=== PATIENT | female | born 1990 | race Caucasian/White ===

== ENCOUNTER 2018-06-12 02:32 | Outpatient (CLI) | payer OTHER ==
[~2018-06-12] VITALS: Ht 160 cm; Wt 69.9 kg
[2018-06-12 02:36] VITALS: BP 109/68; PULSE 70; RESP 16
[2018-06-12 02:38] VITALS: Ht 160 cm; Wt 69.9 kg
--- NOTE | 2018-06-12 05:39 | PN ---
Triage Information Date/Time 06/12/1804/01/533 Reason for visit: Uterine contractions Weeks of Gestation 34w1d /Para Diabetes: none Hypertention: none Objective Vital Signs Date Temp Pulse Resp B/P (MAP) Pulse Ox O2 O2 Flow FiO2 Time Delivery Rate 06/12/18 98.3 70 16 109/68 Room Air 02:36 (82) Heart Rate: 130's Heart Rate Comments CAT I tracing Contractions: >10 Minutes Apart Results/Medications Results 24 hrs Laboratory Tests Test 06/12/18 02:50 Urine Color STRAW Urine Clarity CLEAR Urine pH 6.0 Urine Specific [place] 1.010 Urine Ketones NEGATIVE Urine Nitrite NEGATIVE Urine Bilirubin NEGATIVE Urine Urobilinogen NEGATIVE Urine Leukocyte Esterase 1+ H Urine Microscopic RBC 0 Urine Microscopic WBC 0 Urine Bacteria FEW A Urine Hemoglobin NEGATIVE Urine Glucose NEGATIVE Urine Total Protein NEGATIVE Imaging Results BPP 8 GEORGE 10.42 CVL 5.5 Disposition: Discharge Assessment/Plan A IUP 34w1d NIL P discharge home with routine labor instructions CHELI CACERES MD Jun 12, 2018 05:39
--- NOTE | 2018-06-12 05:41 | TRIAGE ---
OB Triage Datetime Report Generated by CPN: 06/12/2018 05:40 Datetime: 06/12/2018 05:23 Labor Evaluation Frequency: none Monitor Mode: External Quality: Mild Pattern: Normal: <= 5 Contractions in 10 Minutes Resting Tone [place]: Relaxed Heart Rate FHR Baseline Rate: 125 Monitor Mode: External US FHR Baseline Changes: No Baseline Change Variability: Moderate 6-25 bpm Accelerations: 15X15 Decelerations: None Category: Category I Datetime: 06/12/2018 04:30 Labor Evaluation Frequency: x2 Monitor Mode: External Duration (sec)2399: 50 Quality: Mild Pattern: Normal: <= 5 Contractions in 10 Minutes Resting Tone [place]: Relaxed Heart Rate FHR Baseline Rate: 125 Monitor Mode: External US FHR Baseline Changes: No Baseline Change Variability: Moderate 6-25 bpm Accelerations: 15X15 Decelerations: None Category: Category I Datetime: 06/12/2018 03:31 Labor Evaluation Frequency: none Monitor Mode: External Pattern: Normal: <= 5 Contractions in 10 Minutes Resting Tone [place]: Relaxed Heart Rate FHR Baseline Rate: 125 Monitor Mode: External US FHR Baseline Changes: No Baseline Change Variability: Moderate 6-25 bpm Accelerations: 15X15 Decelerations: None Category: Category I Datetime: 06/12/2018 03:00 Assessment Type: Triage Maternal Assessment Level of Consciousness: Fully Conscious DTR's/Clonus: DTRs 2+; No Clonus Headache: Denies Blurred Vision: No Respiratory Effort: Unlabored; Regular Rhythm; Equal Expansion Breath Sounds, Left: Clear and Equal Breath Sounds, Right: Clear and Equal Nausea/Vomiting: Denies RUQ Epigastric Pain: Denies Facial Edema: None Fall Risk Assessment History of Falling: (0) No Secondary Diagnosis: (0) No Ambulatory Aid: (0) Bedrest/Nurse Assist IV Therapy: (0) No Gait: (0) Normal/Bedrest/Immobile Mental Status: (0) Oriented to Own Ability Fall Score: 0 Fall Risk Score Definition: No Risk: No action required Datetime: 06/12/2018 02:41 Time of Arrival: 06/12/2018 02:30 EGA: 34.1 Arrived By: Ambulatory Arrived From: Home Chief Complaint: C_O UC'S SINCE 0 Movement: Decreased Contractions: Irregular Time Contractions Began: 06/12/2018 00:30 Rupture of Membranes: Denies Vaginal Bleeding: None Vaginal Discharge: Denies Recent Sexual Intercouse: Denies Abdominal Trauma: Not Applicable Patient Complaints: Contractions Time Provider Notified: 06/12/2018 03:15 Provider Notified: Initial Plan: EFM, UA, URINE CULTURE, BPP,NST, CVL Datetime: 06/12/2018 02:40 Vaginal Exam Membrane Status: Intact Datetime: 06/12/2018 02:35 Labor Evaluation Frequency: NONE Monitor Mode: External Pattern: Normal: <= 5 Contractions in 10 Minutes Resting Tone [place]: Relaxed Heart Rate FHR Baseline Rate: 135 Monitor Mode: External US FHR Baseline Changes: No Baseline Change Variability: Moderate 6-25 bpm Accelerations: 15X15 Decelerations: None Category: Category I Vaginal Exam Membrane Status: Intact
== END 2018-06-12 05:38 | disposition home or self-care (01) ==
LOC: OBT 02:32 → L-D 02:34 → OBT 05:38
PROVIDERS: ATTEND Specialist
DX: O62.9 Abnormality of forces of labor, unspecified (principal); Z3A.34 34 weeks gestation of pregnancy
CPT/HCPCS: 76817; 76818; 81001; 87086; Z7500; G0463

== ENCOUNTER 2018-07-15 22:12 | Outpatient (CLI) | payer OTHER ==
[~2018-07-15] VITALS: Ht 160 cm; Wt 71.6 kg
[2018-07-15 22:14] VITALS: Ht 160 cm; Wt 71.6 kg
[2018-07-15] MEDS ORDERED: PREN-93 PO (22:15)
[2018-07-15] MEDS ORDERED: FER325 PO (22:15)
--- NOTE | 2018-07-16 03:16 | TRIAGE ---
OB Triage Datetime Report Generated by CPN: 07/16/2018 03:16 Datetime: 07/16/2018 02:42 Labor Evaluation Frequency: 1.5-4 Monitor Mode: External Duration (sec)2399: 60-150 Pattern: Normal: <= 5 Contractions in 10 Minutes Heart Rate FHR Baseline Rate: 130 Monitor Mode: External US Variability: Moderate 6-25 bpm Accelerations: 15X15 Decelerations: None Category: Category I Datetime: 07/16/2018 02:03 Vaginal Exam Dilatation (cms): 2.0 Effacement (%): 60 Station: -3 Vaginal Bleeding: None Cervix, Consistency: Moderate Cervix, Position: Posterior Presentation 'A': Cephalic Datetime: 07/16/2018 02:00 Monitor Mode: External US Comments: AUDIBLE FHT Datetime: 07/16/2018 00:09 Comments: pt off monitor to ambulate on unit Datetime: 07/16/2018 00:00 Labor Evaluation Frequency: 3-6 Monitor Mode: External Duration (sec)2399: 60-150 Pattern: Normal: <= 5 Contractions in 10 Minutes Heart Rate FHR Baseline Rate: 130 Monitor Mode: External US Variability: Moderate 6-25 bpm Accelerations: 15X15 Decelerations: None Category: Category I Datetime: 07/15/2018 23:44 Vaginal Exam Dilatation (cms): 1.0 Effacement (%): 40 Station: -3 Vaginal Bleeding: None Cervix, Consistency: Moderate Cervix, Position: Posterior Presentation 'A': Cephalic Datetime: 07/15/2018 23:00 Labor Evaluation Frequency: 4-8 Monitor Mode: External Duration (sec)2399: 60-240 Pattern: Normal: <= 5 Contractions in 10 Minutes Heart Rate FHR Baseline Rate: 135 Monitor Mode: External US Variability: Moderate 6-25 bpm Accelerations: 15X15 Decelerations: None Category: Category I Datetime: 07/15/2018 22:30 Vaginal Exam Dilatation (cms): 1.0 Effacement (%): 40 Station: -3 Vaginal Bleeding: None Cervix, Consistency: Moderate Cervix, Position: Posterior Presentation 'A': Unable to Assess Lie 'A': Longitudinal Datetime: 07/15/2018 22:22 Stage of : OB Triage Assessment Type: Triage Maternal Assessment Level of Consciousness: Fully Conscious DTR's/Clonus: DTRs 2+; No Clonus Headache: Denies Blurred Vision: No Respiratory Effort: Unlabored; Regular Rhythm; Equal Expansion Breath Sounds, Left: Clear and Equal Breath Sounds, Right: Clear and Equal Nausea/Vomiting: Denies RUQ Epigastric Pain: Denies Lower Extremities Edema: None Degree: None Upper Extremities Edema: None Degree: None Facial Edema: None Temperature Route: Oral Comments: monitors applied. audible FHT Pain Assessment Pain Scale: 8 Pain Presence: Intermittent Pain Type: Pressure Pain Location: Abdomen; Back Pain Goal: 2 Pain Relief Measures: Comfort Measures Datetime: 07/15/2018 22:16 Time of Arrival: 07/15/2018 22:09 EGA: 38.6 Arrived By: Wheelchair Arrived From: Home Chief Complaint: UC'S _ BLEEDING Movement: Present Contractions: Regular Time Contractions Began: 07/15/2018 21:00 Rupture of Membranes: Denies Vaginal Bleeding: Small Vaginal Discharge: Present Recent Sexual Intercouse: Denies Abdominal Trauma: Not Applicable Patient Complaints: Contractions; Other Time Provider Notified: 07/15/2018 22:48 Provider Notified: SUSAN Initial Plan: CEFM, SVE, BPP, PO HYDRATION, UA Datetime: 06/12/2018 03:00 Fall Risk Assessment Fall Score: 0 Fall Risk Score Definition: No Risk: No action required Datetime: 06/12/2018 02:41 EGA: 34.1
--- NOTE | 2018-07-16 06:37 | PN ---
Triage Information Date/Time July 15, 2018 Weeks of Gestation 39 weeks /Para 3 para 2 Diabetes: none Hypertention: none Additional information 27-year-old G3, P2 with IUP at 39 weeks presented with uterine contractions and passing mucus with scant amount of blood. She denies any decreased movement. Objective Vital signs stable Heart Rate: 130's Heart Rate Comments NST category 1 and reactive Exam General appearance: Alert and oriented x4 does not appear to be in any acute distress Abdomen soft, gravid, fundal height consistent with gestational age NST: Category 1 Cervical exam /-3 BPP:10/19 GEORGE: 815.9 Results/Medications Results 24 hrs Laboratory Tests Test 07/15/18 22:30 Urine Color YELLOW Urine Clarity SLIGHTLY CLOUDY A Urine pH 7.0 Urine Specific [place] 1.018 Urine Ketones NEGATIVE Urine Nitrite NEGATIVE Urine Bilirubin NEGATIVE Urine Urobilinogen 1+ H Urine Leukocyte Esterase 1+ H Urine Microscopic RBC 1 Urine Microscopic WBC 2 Urine Squamous Epithelial Cells FEW Urine Bacteria FEW A Urine Hemoglobin 1+ H Urine Glucose NEGATIVE Urine Total Protein NEGATIVE Imaging Results PROCEDURE: US OB biophysical profile. CLINICAL INDICATION: decreased movements, abdominal pain TECHNIQUE: Multiple sonographic images of the pelvis were obtained. The images were reviewed on a PACS workstation. COMPARISON: No prior studies are available for comparison. FINDINGS: There is a single live intrauterine gestation. Cardiac activity is present with 154 beats per minute. There is a vertex presentation. The placenta is posterior. There is no evidence of placental abruption. GEORGE = 15.9 cm. Biophysical profile: movement 2/2 tone 2/2. breathing 2/2 GEORGE 2/2 Total 10/19 RPTAT: AA . IMPRESSION: Normal biophysical profile. Disposition: Discharge Assessment/Plan IUP at 39 weeks Scant bleeding with passing mucous plug, contractions, Resolved, false labor pain testing reassuring Patient will be discharged home with a strict labor precautions kick count and follow-up within 48 hours after discharge from the hospital with primary OB office or sooner as needed Patient verbalized understanding. All questions were answered to patient's best satisfaction. PIETRO DAVIS MD July 16, 2018 06:37
== END 2018-07-16 02:52 | disposition home or self-care (01) ==
LOC: L-D 22:12 → OBT 22:12
PROVIDERS: ATTEND Specialist
DX: O47.1 False labor at or after 37 completed weeks of gestation (principal); O62.9 Abnormality of forces of labor, unspecified; Z3A.39 39 weeks gestation of pregnancy
CPT/HCPCS: 76818; 81001; Z7500; G0463